=== PATIENT | female | born 2000 | race Two or more races ===

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

== ENCOUNTER 2020-01-19 19:46 | Emergency (ER) | payer OTHER ==
[~2020-01-19] VITALS: Ht 160 cm; Wt 58.3 kg
[2020-01-19 20:41] LABS: BASO % 0.3 % (0.0-1.0); EOS # 0.3 10^3/uL (0.0-0.5); EOS % 4.1 % (0.0-3.0); HEMATOCRIT 38.9 % (36.0-47.0); HEMOGLOBIN 12.3 g/dl (12.0-15.5); LYMPH # 2.3 10^3/uL (1.5-5.0); MEAN CORPUSCULAR HEMOGLOBIN 24.7 pg (27.0-33.0); MEAN CORPUSCULAR HGB CONC 31.6 g/dl (32.0-36.5); MEAN CORPUSCULAR VOLUME 78.1 fl (80.0-96.0); MONO # 0.6 10^3/uL (0.0-0.8); MONO % 9.5 % (0.0-5.0); NEUTROPHILS # 3.3 10^3/uL (1.5-8.5); NEUTROPHILS % 50.9 % (36.0-66.0); PLATELET COUNT, AUTOMATED 233 10^3/uL (150-450); RED BLOOD COUNT 4.98 10^6/uL (4.00-5.40); WHITE BLOOD COUNT 6.5 10^3/uL (4.0-10.0)
--- NOTE | 2020-01-19 21:01 | REPVR ---
PROCEDURE INFORMATION: Exam: US First Trimester, Transabdominal Exam date and time: 01/19/2020 8:27 PM Age: 19 years old Clinical indication: Lmp or gestational age (in weeks): 6w 3d; Vaginal bleeding; TECHNIQUE: Imaging protocol: Real-time transabdominal obstetrical ultrasound of the maternal pelvis and a first trimester , less than 14 weeks 0 days, with image documentation. COMPARISON: No relevant prior studies available. FINDINGS: Last menstrual period: 12/05/2019 Gestation: There is a single live intrauterine . There is an elliptical shaped gestational sac and a 4 mm in diameter yolk sac. motion was observed by the production control technologist. Embryonic/ heart rate: 139 bpm Placenta: Unremarkable. No subchorionic bleed. Amniotic fluid: Amniotic fluid is normal for gestational age. BIOMETRY: Gestational age (AUA): 6 weeks 3 days Gestational age by LMP: 6 weeks 3 days Estimated due date (AUA): 09/10/2020 Estimated due date by LMP: 09/10/2020 Basalt-Rump length: 0.6 cm MATERNAL: Uterus: Unremarkable. Cervix: Unremarkable. Right adnexa: The right ovary was not visualized due to obscuration by intestinal gas. Left adnexa: The left ovary was not visualized due to obscuration by intestinal gas. Intraperitoneal space: No intraperitoneal free fluid. IMPRESSION: Single live intrauterine with a gestational age by ultrasound of 6 weeks 3 days and estimated due date on 09/10/2020. No subchorionic hemorrhage. Electronically signed by: Bryson Galan On 01/19/2020 21:01:40 PM
[2020-01-19 21:35] LABS: BLOOD UREA NITROGEN 10 MG/DL (7-18); CALCIUM LEVEL 9.1 MG/DL (8.5-10.1); CARBON DIOXIDE LEVEL 26 MEQ/L (21-32); CHLORIDE LEVEL 104 MEQ/L (98-107); CREATININE FOR GFR 0.66 MG/DL (0.55-1.30); GLUCOSE, FASTING 86 MG/DL (70-100); HCG, SERUM QUANTITATIVE 101955 MIU/ML; POTASSIUM SERUM 4.1 MEQ/L (3.5-5.1); SODIUM LEVEL 135 MEQ/L (136-145)
[2020-01-19] MEDS ORDERED: FOSFOMYCIN TROMETHAMINE 3 GM POWDER PACKET (MONUROL) PO ONE (22:45)
[2020-01-19 22:51] VITALS: BP 122/58
== END 2020-01-19 23:20 | disposition home or self-care (01) ==
LOC: M ED 19:46
DX: O20.0 Threatened abortion (principal); O23.41 Unspecified infection of urinary tract in pregnancy, first trimester; O23.91 Unspecified genitourinary tract infection in pregnancy, first trimester; R82.71 Bacteriuria; Z3A.01 Less than 8 weeks gestation of pregnancy; Z88.0 Allergy status to penicillin

== ENCOUNTER 2020-05-17 03:23 | Emergency (ER) | payer OTHER ==
[~2020-05-17] VITALS: Ht 162.6 cm; Wt 61.8 kg
--- NOTE | 2020-05-17 08:41 | REP ---
INDICATION: trauma to face. COMPARISON: None. TECHNIQUE: Maxillofacial CT without IV FINDINGS: There is no nasal bone fracture. There is no orbit fracture. The ocular lenses and globes are unremarkable. The orbital fat planes are unremarkable. No paranasal sinus fracture. No maxilla or mandibular fracture or dislocation. No mastoid fracture or air-fluid level. There is focal mucosal thickening superiorly and posteriorly in the right maxillary sinus. There is a small air-fluid level posteriorly in the right maxillary sinus. There is focal mucosal thickening medially in the left maxillary sinus. The mucosal thickening and air-fluid level are nonspecific and could represent sinusitis or could be posttraumatic. IMPRESSION: No facial bone fracture is identified. There are focal areas of mucosal thickening bilaterally and there is a small air-fluid level in the right maxillary sinus. These findings are nonspecific and could be posttraumatic or inflammatory/infectious. <Electronically signed by Speedy Reaves > 05/17/20 [id number]
[2020-05-17 09:20] LABS: AMPHETAMINES LEVEL URINE NEGATIVE (NEGATIVE); BARBITURATES URINE NEGATIVE (NEGATIVE); BENZODIAZEPINES URINE NEGATIVE (NEGATIVE); CANNABINOIDS URINE NEGATIVE (NEGATIVE); COCAINE METABOLITE URINE NEGATIVE (NEGATIVE); METHADONE URINE NEGATIVE (NEGATIVE); OPIATES URINE NEGATIVE (NEGATIVE); PHENCYCLIDINE URINE NEGATIVE (NEGATIVE)
[2020-05-17 09:30] VITALS: BP 107/56
== END 2020-05-17 09:45 | disposition home or self-care (01) ==
LOC: M ED 03:23
DX: S00.33XA Contusion of nose, initial encounter (principal); Y04.0XXA Assault by unarmed brawl or fight, initial encounter; Y92.89 Other specified places as the place of occurrence of the external cause; Y93.9 Activity, unspecified; Y99.9 Unspecified external cause status; Z87.59 Personal history of other complications of pregnancy, childbirth and the puerperium; Z88.0 Allergy status to penicillin
CPT/HCPCS: 70486; 80307; 82077; 99284; G0480